=== PATIENT | male | born 1940 | race Caucasian/White ===

== ENCOUNTER 2021-03-13 21:24 | Emergency (ER) | payer MEDICARE, MEDICAID ==
[~2021-03-13] VITALS: Ht 170.2 cm; Wt 86.3 kg
[~2021-03-13 21:24] MED LIST: ASPI-1265 PO; ATOR20TA66 PO; CLON-528 PO; CLOT15CR73 TP; DIVA500T9 PO; DOCU100C40 PO; LEVO175T2 PO; MULT-1179 PO; OLAN5TAB3 PO; OMEP-84 PO; PARO10TA76 PO; POLY1530 PO; TRAZ-89 PO
[2021-03-13 23:06] LABS: BASOPHILS % (AUTO) 0.2 % (0-1); EOSINOPHILS % (AUTO) 0.2 % (0-6); HEMATOCRIT 41.6 % (42.0-52.0); HEMOGLOBIN 13.9 g/dl (14.0-17.9); LYMPHOCYTES # (AUTO) 1.6 X10'3 (1.1-4.8); LYMPHOCYTES % (AUTO) 19.9 % (21-51); MEAN CORPUSCULAR HEMOGLOBIN 29.1 PG (27.0-31.0); MEAN CORPUSCULAR HGB CONC 33.4 g/dL (33.0-36.5); MEAN PLATELET VOLUME 7.4 FL (7.4-10.4); MONOCYTES # (AUTO) 0.9 X10'3 (0-0.9); MONOCYTES % (AUTO) 11.5 % (2-12); NEUTROPHILS # (AUTO) 5.6 X10'3 (1.8-7.7); NEUTROPHILS % (AUTO) 68.2 % (42-75); PLATELET COUNT 289 X10'3 (140-440); RED BLOOD COUNT 4.78 X10'6 (4.70-6.10); WHITE BLOOD COUNT 8.2 X10'3 (4.5-11.0)
[2021-03-13 23:34] LABS: ALANINE AMINOTRANSFERASE 19 U/L (12-78); ALBUMIN 2.5 G/DL (3.4-5.0); ALBUMIN/GLOBULIN RATIO 0.5 (1.1-1.5); ALKALINE PHOSPHATASE 63 IU/L (46-116); ANION GAP 9 (8-16); ASPARTATE AMINO TRANSFERASE 33 U/L (10-37); BILIRUBIN,TOTAL 0.2 MG/DL (0.1-1.0); BLOOD UREA NITROGEN 33 MG/DL (7-18); BUN/CREATININE RATIO 37.5 (5.4-32.0); CALCIUM 8.8 MG/DL (8.5-10.1); CHLORIDE 101 MMOL/L (99-107); CREATININE 0.88 MG/DL (0.60-1.10); GLUCOSE 118 MG/DL (70-104); LIPASE 86 U/L (73-393); POTASSIUM 3.9 MMOL/L (3.5-5.1); SODIUM 139 MMOL/L (135-145); TOTAL CARBON DIOXIDE 29.2 MMOL/L (24-32); TOTAL PROTEIN 7.4 G/DL (6.4-8.2); eGFR 84 ML/MIN
[2021-03-13] MEDS ORDERED: LIDOcaine 2% 10ml TOPICAL JELLY (Urojet) TP ONE (23:55)
[2021-03-14 00:54] LABS: CLARITY,URINE CLOUDY (Clear); COLOR,URINE YELLOW (Yellow); GLUCOSE, URINE NEGATIVE (Neg); KETONES,URINE NEGATIVE (Neg); LEUKOCYTE ESTERASE ,URINE SMALL (Neg); NITRITES, URINE NEGATIVE (Neg); OCCULT BLOOD,URINE NEGATIVE (Neg); PROTEIN,URINE TRACE mg/dl (Neg); UROBILINOGEN,URINE 0.2 E.U/dL (0.2-1.0)
[2021-03-14 00:58] LABS: UA COLLECTION TYPE FOLEY CATH
[2021-03-14 01:08] LABS: BACTERIA,URINE 4+ /HPF (Neg); RBC,URINE NONE SEEN /HPF (0-2); SQUAMOUS EPITHELIAL CELL,UR NONE SEEN /LPF (FEW); WBC,URINE 0-4 /HPF (0-4)
[2021-03-14] MEDS ORDERED: CefTRIAXone/D5W-Rocephin 1gm 50 ML IV ONE (04:25)
[2021-03-14] MEDS ORDERED: CEPH250T PO (04:27)
[2021-03-14] MEDS ORDERED: cephalexin 250mg capsule PO ONE (04:35)
[2021-03-14] MEDS ORDERED: FLO0.4C PO (04:36)
[2021-03-14] MEDS ORDERED: tamsulosin 0.4mg capsule PO ONE (04:42)
--- NOTE | 2021-03-14 05:00 | NUR ---
Left roth in place, switched to leg bag prior to departure
[2021-03-14 05:01] VITALS: BP 130/76
--- NOTE | 2021-03-14 05:01 | NUR ---
Caregiver to transport back, returned and cleaned patient, reported "large cow ace" from enema tx
== END 2021-03-14 05:04 | disposition home or self-care (01) ==
LOC: ER 21:25
DX: N39.0 Urinary tract infection, site not specified (principal); K59.00 Constipation, unspecified; R33.9 Retention of urine, unspecified; R10.84 Generalized abdominal pain; E78.00 Pure hypercholesterolemia, unspecified; K21.9 Gastro-esophageal reflux disease without esophagitis; F31.9 Bipolar disorder, unspecified; F20.9 Schizophrenia, unspecified; Z86.69 Personal history of other diseases of the nervous system and sense organs; Z98.890 Other specified postprocedural states; Z88.8 Allergy status to other drugs, medicaments and biological substances; Z79.82 Long term (current) use of aspirin; Z79.2 Long term (current) use of antibiotics; Z79.899 Other long term (current) drug therapy
CPT/HCPCS: 36415; 51702; 74176; 80053; 81001; 83605; 83690; 84145; 85025; 87088; 99284

== ENCOUNTER 2021-03-26 08:51 | Emergency (ER) | payer MEDICARE, MEDICAID ==
[~2021-03-26] VITALS: Ht 177.8 cm; Wt 95.5 kg
[~2021-03-26 08:51] MED LIST changes: +FLO0.4C PO
[2021-03-26 09:00] VITALS: BP 125/73
[2021-03-26] MEDS ORDERED: bisacodyl 10mg suppository rectal RC ONE (10:55)
[2021-03-26] MEDS ORDERED: sodium polystyrene sulfonate ENEMA 30gm/120ml RC ONE (11:10)
[2021-03-26] MEDS ORDERED: sodium polystyrene sulfonate 15gm/60ml oral suspension PR ONE (11:15)
[2021-03-26] MEDS ORDERED: mineral oil 133ml enema RC PRN (11:20)
== END 2021-03-26 13:30 | disposition home or self-care (01) ==
LOC: ER 08:52
DX: K59.00 Constipation, unspecified (principal); E86.0 Dehydration; F03.90 Unspecified dementia, unspecified severity, without behavioral disturbance, psychotic disturbance, mood disturbance, and anxiety; G40.909 Epilepsy, unspecified, not intractable, without status epilepticus; E78.00 Pure hypercholesterolemia, unspecified; K21.9 Gastro-esophageal reflux disease without esophagitis; E07.9 Disorder of thyroid, unspecified; Z99.3 Dependence on wheelchair; Z88.8 Allergy status to other drugs, medicaments and biological substances; Z79.82 Long term (current) use of aspirin; Z79.899 Other long term (current) drug therapy
CPT/HCPCS: 74018; 99284